=== PATIENT | female | born 1955 | race Two or more races ===

== ENCOUNTER 2017-06-23 10:32 | Emergency (ER) | payer MEDICAID ==
[~2017-06-23] VITALS: Ht 152.4 cm; Wt 67.1 kg
[~2017-06-23 10:32] MED LIST: CYCLOBENZAPRINE10 MG ORAL; NAPROSYN500 M1 ORAL; NKM; NORCO 5-325 TA1 EACH ORAL
[2017-06-23 10:43] VITALS: BP 100/67
--- NOTE | 2017-06-23 10:56 | Emergency Room Report ---
History of Present Illness General Chief Complaint: General Complaint Source: Patient Present Illness HPI Patient feels something in her left ear. This began 2 days ago when she was cleaning her ear with a feather. There is no pain. No fever. No change in her hearing. Allergies: Coded Allergies: No Known Allergies (Unverified , 04/11/15) Patient History Past Medical History: see triage record Social History: Denies: smoking Last Menstrual Period: na Reviewed Nursing Documentation: PMH: Agreed, PSxH: Agreed Nursing Documentation-PMH Past Medical History: No History, Except For Hx Gastrointestinal Problems: Yes - gastritis Review of Systems Constitutional: Reports: see HPI Eye: Denies: eye pain ENT: Reports: see HPI Respiratory: Denies: cough, shortness of breath Cardiovascular: Denies: chest pain, palpitations Gastrointestinal: Denies: nausea Neurological: Denies: dizziness Physical Exam Vital Signs Date Time Temp Pulse Resp B/P Pulse Ox O2 Delivery O2 Flow Rate FiO2 06/23/17 10:37 97.3 68 18 100/67 98 Room Air Sp02 EP Interpretation: reviewed, normal General Appearance: well appearing, no apparent distress Head: normocephalic, atraumatic Eyes: bilateral eye normal inspection ENT: other - FB in L ear canal, TM normal Neck: full range of motion, supple Respiratory: no respiratory distress, speaking full sentences Musculoskeletal: no calf tenderness Neurologic: alert, normal gait, grossly normal Psychiatric: mood/affect normal, anxious Skin: no rash Procedures Additional Procedure Procedure Narrative removed FB from ear canal with ear loop Medical Decision Making Diagnostic Impression: Primary Impression: Acute foreign body of ear canal Qualified Codes: T16.2XXA - Foreign body in left ear, initial encounter ER Course Patient presents with a FB in her left ear canal. We will use lidocaine to anesthetize and then irrigate this out. Irrigation did not remove FB. FB removed with ear loop. Tolerated well. Slight inflammation after. Abx prescribed. Patient stable for outpatient observation and treatment. Last Vital Signs Date Time Temp Pulse Resp B/P Pulse Ox O2 Delivery O2 Flow Rate FiO2 06/23/17 12:00 97.3 66 18 104/66 100 Room Air Status: improved Disposition: HOME, SELF-CARE Condition: Improved Scripts Neomycin/Polymyxin B Sulf/Hc* (CORTISPORIN EAR SOLUTION*) 10 Ml Solution 4 DROP LEFT EAR QID, #10 ML 0 Refills Prov: Rita,Vishnu M.D. 06/23/17 Vishnu Salinas M.D. Jun 23, 2017 10:56
[2017-06-23] MEDS ORDERED: Lidocaine 1% MPF 10mg/ml 5ml INJ ONE (11:00)
[2017-06-23 11:40] VITALS: BP 104/66
[2017-06-23 12:00] VITALS: BP 104/66
[2017-06-23] MEDS ORDERED: CORTISPORIN EAR10 ML LEFT EAR (12:10)
== END 2017-06-23 12:00 | disposition home or self-care (01) ==
LOC: EMR 10:59
DX: T16.2XXA Foreign body in left ear, initial encounter (principal); X58.XXXA Exposure to other specified factors, initial encounter; Y92.89 Other specified places as the place of occurrence of the external cause
CPT/HCPCS: 10120; 69210